=== PATIENT | male | born 1955 | race Caucasian/White ===

== ENCOUNTER 2019-09-10 22:53 | Emergency (ER) | payer OTHER ==
--- NOTE | 2019-10-25 15:11 | EKG ---
Test Reason : Blood Pressure : / mmHG Vent. Rate : 069 BPM Atrial Rate : 069 BPM P-R Int : 180 ms QRS Dur : 106 ms QT Int : 432 ms P-R-T Axes : 050 -06 063 degrees QTc Int : 462 ms NORMAL SINUS RHYTHM INCOMPLETE RIGHT BUNDLE BRANCH BLOCK BORDERLINE ECG NO PREVIOUS ECGS AVAILABLE Confirmed by ROBERT WEBSTER MD ([id number]) on 10/25/2019 3:11:07 PM Referred By: Confirmed By:ROBERT WEBSTER MD
== END 2019-09-10 23:30 | disposition left against medical advice (07) ==
LOC: JER 22:53
DX: Z53.21 Procedure and treatment not carried out due to patient leaving prior to being seen by health care provider (principal)
CPT/HCPCS: 93005; 93010; 99281-25